=== PATIENT | male | born 1930 | race Caucasian/White ===

== ENCOUNTER 2017-10-29 12:45 | Inpatient (IN) | payer OTHER ==
[~2017-10-29] VITALS: Ht 170.2 cm; Wt 79.4 kg
--- NOTE | 2017-10-29 13:39 | ED GENERAL ADULT ---
History of Present Illness General Chief Complaint: General Adult Stated Complaint: SHAKING WHILE AT THE DENTIST GETTING A CLEANING Source: patient, family Exam Limitations: no limitations Vital Signs & Intake/Output Vital Signs & Intake/Output Vital Signs Date Time Temp Pulse Resp B/P B/P Pulse O2 O2 Flow FiO2 Mean Ox Delivery Rate 10/29 1734 100.8 96 20 124/67 96 Room Air 10/29 1652 100.8 10/29 1641 100.8 102 20 117/63 94 Room Air 10/29 1614 100.9 10/29 1605 101.1 97 22 124/69 95 Room Air 10/29 1512 98 25 121/60 95 Room Air 10/29 1425 100.9 103 20 134/67 94 Room Air 10/29 1323 Room Air 10/29 1322 108 19 136/78 97 Room Air 10/29 1252 99.5 103 18 158/74 99 Room Air Allergies Coded Allergies: No Known Allergies (10/29/17) Triage Note: PT TO ED FOR GENERALIZED ALL OVER BODY SHAKING WHILE 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 PT ARRIVES WITH MINIMAL GENERALIZED TREMORS, DENIES ANY OTHER COMPLAINTS AT THIS TIME. NO HX OF SAME. Triage Nurses Notes Reviewed? 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 Patient had no new medications or procedure done prior to this episode. Patient also states that while he was at the dentist he felt as though his entire left arm "fell asleep" and went numb. This episode lasted approximately 35 minutes and has resolved completely. Patient states that he had nonbloody diarrhea last night approximately 3 episodes. Today upon arrival to the emergency department patient feeling nauseous and vomiting, had no vomiting prior to arrival here today. 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 He is seeing an electric needle specialist neurologist through [place]. Patient had a head MRI and head CT scan within the past month which were within normal limits. Patient also has right ear pain, status post prior to and right ear, history of herpes zoster in the right ear. The patient denies dyspnea, chest pain, abdominal pain , hematemesis, syncope, headache. (Emani Davila) Reconcile Medications Aspirin (Ecotrin*) 81 MG TABLET.DR 1 TAB PO DAILY HEART/BLOOD (Reported) Atorvastatin Calcium 10 MG TABLET 1 TAB PO DAILY CHOLESTEROL (Reported) Cholecalciferol (Vitamin D3) (Vitamin D) 2,000 UNIT CAPSULE 1 CAP PO BID SUPPLEMENT (Reported) Cyanocobalamin (Vitamin B-12) (Cyanocobalamin Injection) 1,000 MCG/ML VIAL 1 ML IM Q30D SUPPLEMENT (Reported) Ferrous Sulfate (Slow Fe) 142 MG (45 MG IRON) TABLET.ER 1 TAB PO DAILY SUPPLEMENT (Reported) Glucosamine HCl/MSM (Glucosamine MSM Liquid) (Unknown Strength) LIQUID ( Unknown Dose) PO DAILY SUPPLEMENT (Reported) Hydrochlorothiazide 25 MG TABLET 1 TAB PO DAILY DIURETIC (Reported) Lactobacillus Acidophilus (Probiotic) (Unknown Strength) CAPSULE (Unknown Dose ) PO DAILY PROBIOTIC (Reported) Lisinopril 20 MG TABLET 1 TAB PO DAILY BP (Reported) Metronidazole 500 MG TABLET 1 TAB PO BID ANTIBIOTIC (Reported) Multiple Vitamin (Multivitamins) 1 EACH TABLET 1 TAB PO DAILY SUPPLEMENT ( Reported) Omeprazole 20 MG CAPSULE.DR 1 CAP PO DAILY GI (Reported) Oxybutynin Chloride (Oxybutynin Chloride ER) 5 MG TAB.ER.24 1 TAB PO QPM BLADDER (Reported) (Shad DANIELS,[place]) Past History Travel History Traveled to [place] past 21 day No Medical History Any Pertinent Medical History? see below for history Neurological: THIRD CRANIAL NERVE PALSY SHINGLES EENT: R EYE "PROBLEMS" Cardiovascular: hypertension, hyperlipidemia Respiratory: NONE Gastrointestinal: GERD, CDIFF SIBO Hepatic: NONE Renal: NONE Musculoskeletal: NONE Psychiatric: NONE Endocrine: NONE Blood Disorders: NONE Cancer(s): NONE Surgical History Surgical History: non-contributory Psychosocial History What is your primary language Qatari Tobacco Use: Never used Daily Tobacco Use Amount/Type: =< 4 Cigarettes daily ETOH Use: denies use Illicit Drug Use: denies illicit drug use Family History Hx Contributory? No (Emani Davila) Review of Systems Review of Systems Constitutional: Reports: see HPI. EENTM: Reports: see HPI. Respiratory: Reports: no symptoms. Cardiovascular: Reports: no symptoms. GI: Reports: see HPI. Genitourinary: Reports: no symptoms. Musculoskeletal: Reports: no symptoms. Skin: Reports: no symptoms. Neurological/Psychological: Reports: see HPI. Hematologic/Endocrine: Reports: no symptoms. Immunologic/Allergic: Reports: no symptoms. All Other Systems: Reviewed and Negative (Emily SERRATO,Emani Arshad) Physical Exam Physical Exam General Appearance: well developed/nourished, no apparent distress, alert, awake Head: atraumatic, normal appearance Eyes: Bilateral: normal appearance, PERRL, EOMI. Ears, Nose, Throat: normal pharynx, hearing grossly normal, right ear with tube in place, white-yellow discharge in ear canal left ear WNL Neck: normal inspection, supple, full range of motion Respiratory: normal breath sounds, no respiratory distress, lungs clear Cardiovascular: tachycardia Gastrointestinal: normal bowel sounds, soft, non-tender, no organomegaly Back: normal inspection, normal range of motion Extremities: normal inspection, normal range of motion Neurologic/Psych: no motor/sensory deficits, awake, alert, oriented x 3, investigator welfare II- XII nml as tested, strength equal bilateral upper and lower extremities 5/5, cerebellar testing WNL bilaterally Skin: intact, normal color, warm/dry Core Measures ACS in differential dx? Yes CVA/TIA Diagnosis: Yes NIH Stroke Scale (24 Hours) NIH Stroke Scale (24 Hours) Response Value Level of Consciousness alert 0 LOC Questions answers both correctly 0 LOC Commands obeys both correctly 0 Best Gaze normal 0 Visual Emery no visual loss 0 Facial Paresis normal 0 Motor Arm - Left no drift 0 Motor Arm - Right no drift 0 Motor Leg - Left no drift 0 Motor Leg - Right no drift 0 Limb Ataxia no ataxia 0 Sensory normal 0 Best Language no aphasia 0 Dysarthria normal articulation 0 Extinction and Inattention no neglect 0 Total 0 Symptom start date: 10/29/17 Reason tPA not ordered Medical Contraindication Sepsis Present: No Sepsis Focused Exam Completed? No (Emani Davila) Progress Differential Diagnoses I considered the following diagnoses in my evaluation of the patient: [TIA/CVA, seizure, ICH, gastroenteritis, influenza, electrolyte abnormality, ACS] Plan of Care: Orders Procedure Date/time Status Heart Healthy Diet 10/30 B Active MRI-HEAD W/O ALLISON 10/30 600 Active MAGNESIUM 10/30 600 Active HEPATIC FUNCTION PANEL 10/30 600 Active CBC WITHOUT DIFFERENTIAL 10/30 600 Active BASIC ELECTROLYTES PLUS BUN&CR 12/31 0600 Active Nothing by Mouth 10/29 D Complete LACTIC ACID 10/[address] ABD & PELVIS W IV CONTRAST 10/29 1803 Active BLOOD CULTURE 10/29 1802 Active PARTIAL THROMBOPLASTIN TIME 10/29 1748 Active PROTHROMBIN TIME 10/29 1748 Active LACTIC ACID 10/29 1742 Complete SWALLOW EVALUATION 10/29 1636 Active PT Evaluate & Treat 10/29 1636 Active Pathway - chart 10/29 1636 Active House Staff 10/29 1636 Active Patient Data 10/[address] in observation 10/29 1621 Active ED Holding Orders 10/29 1621 Active Vital Signs 10/29 1621 Active Code Status 10/29 1621 Active Add-on Test (ER Only) 10/29 1432 Active URINALYSIS 10/29 1419 Complete RAPID VIRAL INFLUENZA A 10/29 1344 Complete TSH REFLEX 10/29 1341 Active LIPASE 10/29 1341 Active LACTIC ACID 10/29 1341 Active VITAMIN B12 10/29 1341 Active AMYLASE 10/29 1341 Active MISTAKE 10/29 1318 Active TROPONIN LEVEL 10/29 1318 Active COMPREHENSIVE METABOLIC PANEL 10/29 1318 Active CBC WITHOUT DIFFERENTIAL 10/29 1318 Complete EKG 10/29 1318 Active XRY-CHEST XRAY, TWO VIEWS 10/29 UNK Active Admit to inpatient 10/29 UNK Active Lab Add-on Test 10/29 UNK Active Occupational Tx Eval & Treat 10/29 UNK Active VTE Mechanical Prophylaxis 10/29 UNK Active Vital Signs 10/29 UNK Active Intake & Output 10/29 UNK Active ECHOCARDIOGRAM 10/29 UNK Active Current Medications Sig/Trey Start time Last Medication Dose Stop Time Status Admin Cholecalciferol 2,000 IU DAILY 10/30 1000 AC (Vitamin D) Enoxaparin Sodium 40 MG DAILY 10/30 1000 AC (Lovenox) Ferrous Sulfate 325 MG DAILY 10/30 1000 AC (Feosol) Hydrochlorothiazide 25 MG DAILY 10/30 1000 CAN (Hydrodiuril) Lisinopril 20 MG DAILY 10/30 1000 AC (Prinivil) Multivitamins 1 TAB DAILY 10/30 1000 AC Therapeutic (Theragran-M Vitamins Tabs) Omeprazole 20 MG DAILY 10/30 1000 AC (Prilosec) Metronidazole 500 MG BID 10/29 2200 AC (Flagyl) Oxybutynin Chloride 5 MG QPM 10/29 2200 AC (Ditropan) Sodium Chloride 1,000 ML Q10H 10/29 1745 AC (Normal Saline 0.9%) Aspirin Buffered 81 MG DAILY 10/29 170 AC (Ecotrin) Atorvastatin Calcium 10 MG DAILY 10/29 170 AC 10/29 (Lipitor) 180 Laboratory Tests 10/29/17 1759: Lactic Acid 1.6 10/29/17 1422: Urine Color YEL, Urine Clarity CLEAR, Urine pH 6.0, Ur Specific [place] 1.015, Urine Protein TRACE H, Urine Ketones NEG, Urine Nitrite NEG, Urine Bilirubin NEG, Urine Urobilinogen 0.2, Ur Leukocyte Esterase NEG, Ur Microscopic SEDIMENT EXAMINED, Urine RBC RARE, Urine WBC RARE, Urine Mucus FEW, Urine Hemoglobin NEG, Urine Glucose NEG 10/29/17 1341: Anion Gap 13, Estimated GFR > 60, BUN/Creatinine Ratio 21.1, Glucose 102 H, Lactic Acid 2.2 H, Calcium 9.6, Total Bilirubin 1.1, AST 371 H, ALT 275 H, Alkaline Phosphatase 77, Troponin I < 0.01, Total Protein 6.5, Albumin 3.9, Globulin 2.6, Albumin/Globulin Ratio 1.5, Amylase 92, Lipase 116, Vitamin B12 Pending, TSH &T3 &Free T4 Intrp 1.980, CBC w Diff NO MAN DIFF REQ, RBC 5.65, MCV 95.2 H, MCH 31.9 H, RDW 13.6, MPV 9.1, Gran % 81.2 H, Lymphocytes % 15.8 L, Monocytes % 2.2, Eosinophils % 0.5, Basophils % 0.3, Absolute Granulocytes 5.3, Absolute Lymphocytes 1.0 L, Absolute Monocytes 0.1, Absolute Eosinophils 0, Absolute Basophils 0, PUBS MCHC 33.5 Microbiology 10/29 1802 BLOOD: Blood Culture - ORD 10/29 1802 BLOOD: Blood Culture - ORD 10/29 142 NASOPHARYN: Influenza Virus A & B Rapid Smear - COMP PATIENT: TIERRA BOGGS PRESENT AGE: 86 PATIENT ACCOUNT NO: [id number] : 30 LOCATION: [facility] ORDERING PHYSICIAN: Emani SERRATO SERVICE DATE: 10/29/17 EXAM TYPE: CAT - CT HEAD WO IV CONTRAST EXAMINATION: CT HEAD WITHOUT CONTRAST CLINICAL INFORMATION: Right arm numbness and generalized weakness COMPARISON: None TECHNIQUE: Contiguous axial imaging was performed from the skull base to vertex without intravenous administration of contrast. DLP: 6-0.91 mGy-cm FINDINGS: There is no evidence of acute intracranial hemorrhage or territorial infarction. No abnormal mass effect or midline shift is seen. Anne to white matter differentiation is well preserved. No extra-axial fluid collections are identified. The ventricles are normal in size. Atherosclerotic calcifications of the cavernous parts of the internal carotid arteries are noted. The osseous structures and soft tissues are normal. The mastoid air cells and visualized portions of the paranasal sinuses are well aerated. IMPRESSION: No acute intracranial hemorrhage or sign of acute territorial ischemia. DICTATED BY: Tj Baires MD DATE/TIME DICTATED:10/29/171519 REVERSE LOGISTICS ANALYST:JAKE DATE/TIME TRANSCRIBED:10/29/171519 CONFIDENTIAL, DO NOT COPY WITHOUT APPROPRIATE AUTHORIZATION. <Electronically signed in Other Vendor System> SIGNED BY: Tj Baires MD 10/29/[address] scan is within normal limits. Patient's lactic acid is elevated slightly, patient medicated with IV fluids. Patient's vomiting has resolved following IV Zofran and Reglan. Patient with possible TIA to an episode of unilateral numbness today. Patient is neurologically intact currently. Also possible gastroenteritis given recent diarrhea yesterday and current nausea and vomiting. Dr. Smith spoke with neurology, Dr. Arredondo, regarding this patient' s signs and symptoms. It was recommended the patient stay for telemetry observation given possible TIA event today. Dr. Smith discussed this patient's telemetry observation with hospitalist. Diagnostic Imaging: Viewed by Me: CT Scan. Discussed w/RAD: CT Scan. Initial ED EKG: sinus tachycardia @ 108, nonspecific ST changes (Emani Davila) Departure Departure Condition: Stable Referrals: Kourtney DANIELS,Jose Cruz Marx Departure Forms: Customer Survey General Discharge Information (Emani Davila) Departure Disposition: STILL A PATIENT Clinical Impression Primary Impression: TIA (transient ischemic attack) Secondary Impressions: Vomiting Observation Note Spoke With: Brenda DANIELS,Jany Bustillos Physician Advisor Notified: SHAD DANIELS,[place] Patient In: Non-ED OBS Care Area Rationale for Observation: My rational for observation is as follows [TELE OBS, NEURO CONSULT (CALLED), MRI , ANTIEMETICS]. PA/TRANSLATION DIRECTOR Co-Sign Statement Statement: ED Attending supervision documentation- [X] I saw and evaluated the patient. I have also reviewed all the pertinent lab results and diagnostic results. I agree with the findings and the plan of care as documented in the PA's/TRANSLATION DIRECTOR's documentation. [X] I have reviewed the ED Record and agree with the PA's/TRANSLATION DIRECTOR's documentation. [] Additions or exceptions (if any) to the PAs/TRANSLATION DIRECTOR's note and plan are summarized below: [SEE ABOVE NOTE] (Shad DANIELS,[place]) Critical Care Note Critical Care Note Critical Care Time: non-applicable (Emily SERRATO,Emani Arshad) (Emily SERRATO,Emani Arshad)
[2017-10-29 14:17] LABS: ABSOLUTE BASOPHIL COUNT 0 /CUMM (0.0-0.2); ABSOLUTE EOSINOPHIL COUNT 0 /CUMM (0.0-0.7); ABSOLUTE GRANULOCYTE CT 5.3 /CUMM (1.4-6.5); ABSOLUTE MONOCYTE COUNT 0.1 /CUMM (0.10-0.60); BASOPHIL % 0.3 % (0.0-2.0); EOSINOPHIL % 0.5 % (0-5); GRANULOCYTE % 81.2 % (42.2-75.2); HEMATOCRIT 53.8 % (42-52); MEAN CORPUSCULAR HGB 31.9 PG (27.0-31.0); MEAN CORPUSCULAR HGB CONC 33.5 G/DL (33.0-37.0); MEAN CORPUSCULAR VOLUME 95.2 FL (80.0-94.0); MEAN PLATELET VOLUME 9.1 FL (7.4-10.4); PLATELET COUNT 86 /CUMM (130-400); RBC DISTRIBUTION WIDTH 13.6 % (11.5-14.5); RED BLOOD CELL CT 5.65 /CUMM (4.70-6.10); WHITE BLOOD CELL COUNT 6.6 /CUMM (4.8-10.8)
[2017-10-29] MEDS ORDERED: METRONIDAZOLE500 M1 PO (15:13)
[2017-10-29] MEDS ORDERED: LISINOPRIL20 M1 PO (15:14)
[2017-10-29] MEDS ORDERED: OMEPRAZOLE20 M2 PO (15:14)
[2017-10-29] MEDS ORDERED: HYDROCHLOROTHIA25 M1 PO (15:14)
[2017-10-29] MEDS ORDERED: OXYBUTYNIN CHLOR5 M3 PO (15:15)
[2017-10-29] MEDS ORDERED: ATORVASTATIN CA10 M1 PO (15:15)
[2017-10-29] MEDS ORDERED: CYANOCOBAL1000 MCG/2 IM (15:16)
[2017-10-29] MEDS ORDERED: ASPIRIN EC81 M1 PO (15:16)
[2017-10-29] MEDS ORDERED: VITAMIN D2000 UNIT PO (15:16)
[2017-10-29] MEDS ORDERED: MULTIVITAMINS1 EAC9 PO (15:17)
[2017-10-29] MEDS ORDERED: PROBIOTIC1 EACH PO (15:17)
[2017-10-29] MEDS ORDERED: SLOW FE142 MG PO (15:17)
[2017-10-29] MEDS ORDERED: GLUCOSAMINE MS480 ML PO (15:18)
--- NOTE | 2017-10-29 15:30 | CT SCAN REPORT ---
EXAMINATION: CT HEAD WITHOUT CONTRAST CLINICAL INFORMATION: Right arm numbness and generalized weakness COMPARISON: None TECHNIQUE: Contiguous axial imaging was performed from the skull base to vertex without intravenous administration of contrast. DLP: 6-0.91 mGy-cm FINDINGS: There is no evidence of acute intracranial hemorrhage or territorial infarction. No abnormal mass effect or midline shift is seen. Anne to white matter differentiation is well preserved. No extra-axial fluid collections are identified. The ventricles are normal in size. Atherosclerotic calcifications of the cavernous parts of the internal carotid arteries are noted. The osseous structures and soft tissues are normal. The mastoid air cells and visualized portions of the paranasal sinuses are well aerated. IMPRESSION: No acute intracranial hemorrhage or sign of acute territorial ischemia.
--- NOTE | 2017-10-29 16:27 | History & Physical ---
Antolin DANIELS,[facility] 10/29/17 9667: General Information and HPI MD Statement: I have seen and personally examined TIERRA BOGGS and documented this H&P. The patient is a 86 year old M who presented with a patient stated chief complaint of [weakness and vomiting]. 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 difficile colitis for which the patient takes prophylactic metronidazole twice a day. The patient presented to [facility] ED on 10/29 with complain of shaking all over body and left arm numbness The patient was in usual state of health until this morning when he visited his dentist. He had an episode of shaking at that office. Patient states that he felt cold and during the episode his left arm fell asleep and went numb. He experienced pins and needles sensation in that arm. The symptoms resolved after 15 minutes, however the shaking continued for 1 hour. He felt unsteady on his feet while walking back to his car. The patient did not lose consciousness, there was no jerky movement of the body, tongue bite, fecal/urinary incontinence , palpitations or prodromal symptoms of nausea or lightheadedness. Of note patient states that he has had episodes of numbness of left arm couple of times in the past as well. Which resolved on their own and has never seek medical attention for it. Patient had an episode of vomiting on arriving to ED. Since then he has had 4 episodes. Patient states feeling warm. He states that he had one episode of diarrhea yesterday resolved by using loperamide. As per patient has not had any episodes of diarrhea since then and contributes this to his chronic colitis. 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 His last stress test was done more than 5 years ago and was within normal limits the patient and the family does not remember him getting an echocardiogram. Patient is a former smoker with 35 y of smoking 3 packs per day and quit 40 years ago. This is patient's first admission to [facility], Most of his care has been done at [facility]. Allergies/Medications Allergies: Coded Allergies: No Known Allergies (10/29/17) Home Med list Aspirin (Ecotrin*) 81 MG TABLET.DR 1 TAB PO DAILY HEART/BLOOD (Reported) Atorvastatin Calcium 10 MG TABLET 1 TAB PO DAILY CHOLESTEROL (Reported) Cholecalciferol (Vitamin D3) (Vitamin D) 2,000 UNIT CAPSULE 1 CAP PO BID SUPPLEMENT (Reported) Cyanocobalamin (Vitamin B-12) (Cyanocobalamin Injection) 1,000 MCG/ML VIAL 1 ML IM Q30D SUPPLEMENT (Reported) Ferrous Sulfate (Slow Fe) 142 MG (45 MG IRON) TABLET.ER 1 TAB PO DAILY SUPPLEMENT (Reported) Glucosamine HCl/MSM (Glucosamine MSM Liquid) (Unknown Strength) LIQUID ( Unknown Dose) PO DAILY SUPPLEMENT (Reported) Hydrochlorothiazide 25 MG TABLET 1 TAB PO DAILY DIURETIC (Reported) Lactobacillus Acidophilus (Probiotic) (Unknown Strength) CAPSULE (Unknown Dose ) PO DAILY PROBIOTIC (Reported) Lisinopril 20 MG TABLET 1 TAB PO DAILY BP (Reported) Metronidazole 500 MG TABLET 1 TAB PO BID ANTIBIOTIC (Reported) Multiple Vitamin (Multivitamins) 1 EACH TABLET 1 TAB PO DAILY SUPPLEMENT ( Reported) Omeprazole 20 MG CAPSULE.DR 1 CAP PO DAILY GI (Reported) Oxybutynin Chloride (Oxybutynin Chloride ER) 5 MG TAB.ER.24 1 TAB PO QPM BLADDER (Reported) Compliance With Home Meds: GOOD Past History Travel History Traveled to [place] past 21 day No Medical History Neurological: THIRD CRANIAL NERVE PALSY SHINGLES EENT: R eye double vision Cardiovascular: hypertension, hyperlipidemia Respiratory: NONE Gastrointestinal: GERD, CDIFF SIBO Hepatic: NONE Renal: NONE Musculoskeletal: NONE Psychiatric: NONE Endocrine: NONE Blood Disorders: NONE Cancer(s): NONE Surgical History Surgical History: appendectomy, cholecystectomy, knee replacement, mesenteric angioplasty Past Family/Social History Family History Relations & Conditions if any SISTER (pancreatic cancer). FATHER (HTN). MOTHER (Glucoma). Psychosocial History Where do you live? Home Who Do You Live With? spouse Services at Home: None Primary Language: Uzbek Smoking Status: Former Smoker (smoked 3 pack/day for 35 y) ETOH Use: denies use Illicit Drug Use: denies illicit drug use Functional Ability ADLs Independent: dressing, eating, toileting, bathing. Ambulation: independent IADLs Independent: shopping, housework, finances, food prep, telephone, transportation , medication admin. Employment History Employment Retired Review of Systems Review of Systems Constitutional: Reports: see HPI, chills, malaise. Denies: unexplained weight loss. Cardiovascular: Denies: chest pain, orthopena, palpitations, peripheral edema. GI: Reports: diarrhea. Denies: abdominal pain, bloating, constipation, vomiting. Genitourinary: Reports: no symptoms. Musculoskeletal: Reports: no symptoms. Skin: Reports: no symptoms. Neurological/Psychological: Reports: see HPI. Exam & Diagnostic Data Last 24 Hrs of Vital Signs/I&O Vital Signs Date Time Temp Pulse Resp B/P B/P Pulse O2 O2 Flow FiO2 Mean Ox Delivery Rate 10/29 1734 100.8 96 20 124/67 96 Room Air 10/29 1652 100.8 10/29 1641 100.8 102 20 117/63 94 Room Air 10/29 1614 100.9 10/29 1605 101.1 97 22 124/69 95 Room Air 10/29 1512 98 25 121/60 95 Room Air 10/29 1425 100.9 103 20 134/67 94 Room Air 10/29 1323 Room Air 10/29 1322 108 19 136/78 97 Room Air 10/29 1252 99.5 103 18 158/74 99 Room Air Intake & Output 10/29 1600 10/29 0800 10/29 0000 Intake Total Output Total 200 Balance -200 Output, Urine 200 Patient 175 lb Weight Weight Reported by Patient Measurement Method Physical Exam General Appearance Alert, Oriented X3, Cooperative, No Acute Distress Skin No Rashes HEENT Atraumatic, PERRLA, EOMI, Mucous Membr. moist/pink Neck Supple, No JVD, No thryomegaly, +2 Carotid Pulse wo Bruit, No LAD Cardiovascular Regular Rate, Normal S1, Normal S2, No Murmurs Lungs Clear to Auscultation, Normal Air Movement Abdomen Normal Bowel Sounds, No Tenderness, No Hepatospenomegaly, No Masses, mildly distended Neurological Normal Gait, Normal Speech, Strength at 5/5 X4 Ext, Normal Tone, Sensation Intact, Cranial Nerves 3-12 NL, Reflexes 2+, cerebeller signs intact Extremities No Cyanosis, No Edema Vascular Normal Pulses Last 24 Hrs of Labs/Carlos: Laboratory Tests 10/29/17 1759: Lactic Acid Pending 10/29/17 1422: Urine Color YEL, Urine Clarity CLEAR, Urine pH 6.0, Ur Specific [place] 1.015, Urine Protein TRACE H, Urine Ketones NEG, Urine Nitrite NEG, Urine Bilirubin NEG, Urine Urobilinogen 0.2, Ur Leukocyte Esterase NEG, Ur Microscopic SEDIMENT EXAMINED, Urine RBC RARE, Urine WBC RARE, Urine Mucus FEW, Urine Hemoglobin NEG, Urine Glucose NEG 10/29/17 1341: Anion Gap 13, Estimated GFR > 60, BUN/Creatinine Ratio 21.1, Glucose 102 H, Lactic Acid 2.2 H, Calcium 9.6, Total Bilirubin 1.1, AST 371 H, ALT 275 H, Alkaline Phosphatase 77, Troponin I < 0.01, Total Protein 6.5, Albumin 3.9, Globulin 2.6, Albumin/Globulin Ratio 1.5, Amylase 92, Lipase 116, Vitamin B12 Pending, TSH &T3 &Free T4 Intrp Pending, CBC w Diff NO MAN DIFF REQ, RBC 5.65, MCV 95.2 H, MCH 31.9 H, RDW 13.6, MPV 9.1, Gran % 81.2 H, Lymphocytes % 15.8 L, Monocytes % 2.2, Eosinophils % 0.5, Basophils % 0.3, Absolute Granulocytes 5.3, Absolute Lymphocytes 1.0 L, Absolute Monocytes 0.1, Absolute Eosinophils 0 , Absolute Basophils 0, PUBS MCHC 33.5 Microbiology 10/29 180 BLOOD: Blood Culture - ORD 10/29 180 BLOOD: Blood Culture - ORD 10/29 1420 NASOPHARYN: Influenza Virus A & B Rapid Smear - COMP Diagnostic Data EKG Results sinus tachycardia QTC 402, deep Q waves in leads 2 and aVF RR progression no acute ST segment changes Other Results CAT - CT HEAD WO IV CONTRAST No acute intracranial hemorrhage or sign of acute territorial ischemia. 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 difficile colitis for which the patient takes prophylactic metronidazole twice a day. The patient presented to [facility] ED on 10/29 with complain of shaking all over body and left arm numbness - Vitals at time of presentation temperature 99.5 recheck at 101.1, tachycardia 103. Rest within normal limits -Pertinent labs H/H 18/54, 86, AST 371 ALT 275, lactic 2.2 -The patient is being placed as an observation on telemetry floor. He is being evaluated and treated for following conditions #Suspected TIA Patient had an episode of left-sided numbness and weakness, which has completely resolved by now. His presentation is concerning for a TIA, CT head negative * Continuous telemetry monitoring for any arrhythmias * Echocardiogram to assess any structural pathology * MRI to rule out evolving stroke * Check orthostatics * Bilateral carotid Doppler to rule out carotid stenosis especially in setting of mesenteric ischemia history in the past * Neuro checks every 4 * We will continue Aspirin and statin * Patient passed bedside swallow, formal consult for the morning #Fever/Vomiting Patient presented to ED with tachycardia and later was found to have fever Tmax 101.1. Lactic acid levels were noted to be 2.2. His presentation is concerning for infectious/vascular pathology. * Monitor fever and white count curve * Continue IV fluids * We are going to trend lactic acid * Chest x-ray to rule out any aspiration * We're going to obtain an urgent CT abdomen with IV contrast to rule out any intra-abdominal pathology abscess versus vascular, will consult surgery as per findings * Obtain blood cultures * Low threshold for starting antibiotics #Transaminitis Patient presented with transaminitis which can be secondary to an infectious process going on * Monitor LFTs * Persistently elevated consider right upper quadrant ultrasound #Thrombocytopenia Patient is admitted with blood pressure of 86. Of unclear etiology for now * Thrombocytopenic precautions * Monitor platelet count * We will check coagulation profile to rule out DIC #Diet nothing by mouth #DVT prophylaxis alps and Lovenox #CODE STATUS full code As Ranked By This Provider Problem List: 1. TIA (transient ischemic attack) 2. Vomiting Core Measures/Misc (07/17) Acute Coronary Syndrome ACS Diagnosis: No Congestive Heart Failure Congestive Heart Failure Diagnosis No Cerebrovascular Accident CVA/TIA Diagnosis: Yes NIH Stroke Scale: Total 0 Date Last Known Well: 10/29/17 Time Last Known Well: 1100 Symptom Start Date: 10/30/17 Symptom Start Time: 1100 Swallow Evaluation Pass VTE (View Protocol) VTE Risk Factors Age>40 No Mechanical VTE Prophylaxis d/t N/A MechProphylax Ordered No VTE Pharm Prophylaxis d/t NA PharmProphylax ordered Sepsis (View protocol) Sepsis Present: No Ender Burton MD 10/29/17 1653: Resident Review Statement Resident Statement: examined this patient, discussed with graduate intern, agreed with graduate intern, reviewed EMR data (avail), discussed with nursing, discussed with case mgmt, reviewed images Other Findings: 86 yo M with pmh of deo [place], and third nerve palsy 2 months ago with residual diplopia, prediabetes, hypertension, GERD, hyperlipidemia, C. difficile colitis on metronidazole twice daily, mesenteric artery occlusion 2 years ago, was brought into the ED after having an episode of generalized shaking and left upper extremity tingling today at his dentist's office. The episode lasted for about an hour, but he did not have any weakness, slurring of speech, blurring of vision, incontinence, neither lost his consciousness. He was rushed to the ED with suspicion of TIA, by which time his symptoms had already resolved. In the ED, he vomited 4 times and had mild abdominal distention. He does not have leukocytosis but he was found to have fever 101.1, lactic acidosis 2.2, thrombocytopenia 86, erythrocytosis- h/h 18/54, transaminitis- ast/alt 371/275, and with suspicion of maybe covert abscess, a CAT scan of his abdomen has been ordered. Chest x-ray has been ordered to rule out any aspiration that he might have as he vomited 4 times in the ED. Patient currently has IV fluids running at 100 and the per hour, but does not have any antibiotic coverage as of now. To rule out TIA/stroke, an MRI has been ordered for tomorrow although the initial CAT scan did not show any overt signs of stroke or bleeding. Neurology consultation has been placed, regular neurochecks have been ordered, echocardiogram has been ordered. Aspirin, statin, antihypertensives continued. Thrombocytopenia precautions will be maintained in coagulation tests ordered to rule out DIC. Patient passed neuro evaluation except his residual deficit, swallow evaluation, and has a gag reflex, thus he can resume diet if his CAT scan of abdomen does not show any concerning abnormalities. DVT prophylaxis with subcutaneous Lovenox. CODE STATUS full code Nothing by mouth for now. Brenda DANIELS,Jany 10/29/17 3032: Attending MD Review Statement Attending Statement Attending MD Statement: examined this patient, discuss w/resident/PA/SUPERVISING CHEF, agreed w/resident/PA/SUPERVISING CHEF, reviewed EMR data (avail), reviewed images Attending Assessment/Plan: 86 year old male with HTN, Hyperlipidemia and vascular disease in the past, third nerve palsy that is being worked up at [facility] is here with fever, lactic acidosis, thrombocytopenia, dehydration, transaminitis and vomitting of unclear etiology. Abd exam benign In addition pt had syx of left arm numbness and weakness earlier this am that have subsequently resolved. Will bring pt to Tele, get neurochecks, echo and MRI. Cont Asa, statin , passed a bedside swallow done by the resident in the ED Hydrate, chcek coags and trend lactate, check blood c/s, get CT abd with IV contrast to r/o intarabdominal process. Chcek cxray, r/o aspiration. Low threshold for abx and surgical consult depending on CT results DVT prophylaxis and f/u.
--- NOTE | 2017-10-29 17:57 | Admission Certification ---
Admission Certification Certification Statement - As attending physician, I certify that at the time of - admission, based on clinical presentation, severity of - symptoms, need for further diagnostic testing and - therapeutic interventions, and risk of adverse outcomes - without in-hospital treatment, in my clinical assessment, - this patient requires an acute hospital stay for a minimum - of two nights or longer. I have also considered psychsocial - factors such as support system, advanced age, financial - issues, cognitive issues, and failed out-patient treatments, - past re-admission history, safety of patient, and lack of - compliance as applicable. Specific rationale supporting this admission is: fever, lactic acidosis, thrombocytopenia
[2017-10-29 18:30] VITALS: BP 118/62; BP 118/96
--- NOTE | 2017-10-29 18:46 | Cons- Neurology ---
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 with having a dental cleaning today leaning his elbows against the arm rests when he noticed some numbness in the fingers of his left hand. He also reports a history of left-sided carpal tunnel syndrome for which he declined surgery in the past. He states that after 5 to 10 minutes repositioning his arm, symptoms improved. He denied any associated weakness. He began to developed rigors and seemed to bit confused according to his daughter, so was brought to the ED, where he experienced some nausea and vomiting, and was found to be febrile. He was brought in for observation. Allergies/Medications Allergies: Coded Allergies: No Known Allergies (10/29/17) Home Med List: Aspirin (Ecotrin*) 81 MG TABLET.DR 1 TAB PO DAILY HEART/BLOOD (Reported) Atorvastatin Calcium 10 MG TABLET 1 TAB PO DAILY CHOLESTEROL (Reported) Cholecalciferol (Vitamin D3) (Vitamin D) 2,000 UNIT CAPSULE 1 CAP PO BID SUPPLEMENT (Reported) Cyanocobalamin (Vitamin B-12) (Cyanocobalamin Injection) 1,000 MCG/ML VIAL 1 ML IM Q30D SUPPLEMENT (Reported) Ferrous Sulfate (Slow Fe) 142 MG (45 MG IRON) TABLET.ER 1 TAB PO DAILY SUPPLEMENT (Reported) Glucosamine HCl/MSM (Glucosamine MSM Liquid) (Unknown Strength) LIQUID ( Unknown Dose) PO DAILY SUPPLEMENT (Reported) Hydrochlorothiazide 25 MG TABLET 1 TAB PO DAILY DIURETIC (Reported) Lactobacillus Acidophilus (Probiotic) (Unknown Strength) CAPSULE (Unknown Dose ) PO DAILY PROBIOTIC (Reported) Lisinopril 20 MG TABLET 1 TAB PO DAILY BP (Reported) Metronidazole 500 MG TABLET 1 TAB PO BID ANTIBIOTIC (Reported) Multiple Vitamin (Multivitamins) 1 EACH TABLET 1 TAB PO DAILY SUPPLEMENT ( Reported) Omeprazole 20 MG CAPSULE.DR 1 CAP PO DAILY GI (Reported) Oxybutynin Chloride (Oxybutynin Chloride ER) 5 MG TAB.ER.24 1 TAB PO QPM BLADDER (Reported) Current Medications: Current Medications Sig/Trey Start time Last Medication Dose Route Stop Time Status Admin Acetaminophen 0 .STK-MED ONE 12/30 1616 DC IV Acetaminophen 1,000 MG ONCE ONE 10/29 1615 DC 10/29 N/A 1 UNIT IV 10/29 1629 1614 Aspirin Buffered 81 MG DAILY 10/29 1707 AC PO Atorvastatin Calcium 10 MG DAILY 10/29 1707 AC 10/29 PO 1802 Cholecalciferol 2,000 IU DAILY 10/30 1000 AC PO Enoxaparin Sodium 40 MG DAILY 10/30 1000 AC SC Ferrous Sulfate 325 MG DAILY 10/30 1000 AC PO Hydrochlorothiazide 25 MG DAILY 10/30 1000 CAN PO Lisinopril 20 MG DAILY 10/30 1000 AC PO Metoclopramide HCl 0 .STK-MED ONE 10/29 1434 DC .ROUTE Metoclopramide HCl 10 MG ONCE ONE 10/29 1415 DC 10/29 IV 10/29 1416 1438 Metronidazole 500 MG BID 10/29 2200 AC PO Multivitamins 1 TAB DAILY 10/30 1000 AC Therapeutic PO Omeprazole 20 MG DAILY 10/30 1000 AC PO Ondansetron HCl 4 MG ONCE ONE 10/29 1345 DC 10/29 IV 10/29 1346 1342 Ondansetron HCl 0 .STK-MED ONE 10/29 1328 DC .ROUTE Oxybutynin Chloride 5 MG QPM 10/29 2200 AC PO Sodium Chloride 1,000 ML Q10H 10/29 1745 AC IV Sodium Chloride 1,000 ML BOLUS ONE 10/29 1430 DC 10/29 IV 10/29 1629 1439 Review of Systems Review of Systems Constitutional: Reports: chills, fever. EENTM: Reports: no symptoms. Cardiovascular: Reports: no symptoms. Respiratory: Reports: no symptoms. GI: Reports: see HPI. Musculoskeletal: Reports: no symptoms. Neurological/Psychological: Reports: see HPI. Hematologic/Endocrine: Reports: no symptoms. Past History Travel History Traveled to [place] past 21 day No Medical History Neurological: THIRD CRANIAL NERVE PALSY SHINGLES, [place] syndrome right side EENT: R EYE "PROBLEMS" Cardiovascular: hypertension, hyperlipidemia Respiratory: NONE Gastrointestinal: GERD, CDIFF SIBO Hepatic: NONE Renal: NONE Musculoskeletal: NONE Psychiatric: NONE Endocrine: NONE Blood Disorders: NONE Cancer(s): NONE Surgical History Surgical History: non-contributory Psychosocial History ETOH Use: denies use Illicit Drug Use: denies illicit drug use Exam & Diagnostic Data Vital Signs and I&O Vital Signs Date Time Temp Pulse Resp B/P B/P Pulse O2 O2 Flow FiO2 Mean Ox Delivery Rate 10/29 1734 100.8 96 20 124/67 96 Room Air 10/29 1652 100.8 10/29 1641 100.8 102 20 117/63 94 Room Air 10/29 1614 100.9 10/29 1605 101.1 97 22 124/69 95 Room Air 10/29 1512 98 25 121/60 95 Room Air 10/29 1425 100.9 103 20 134/67 94 Room Air 10/29 1323 Room Air 10/29 1322 108 19 136/78 97 Room Air 10/29 1252 99.5 103 18 158/74 99 Room Air Intake & Output 10/29 1600 10/29 0800 10/29 0000 Intake Total Output Total 200 Balance -200 Output, Urine 200 Patient 175 lb Weight Weight Reported by Patient Measurement Method Physical Exam: awake alert pleasant cooperative head normocephalic atraumatic hearing aids in place Neck supple no audible carotid or cranial bruits heart regular rate and rhythm extremities without clubbing cyanosis or edema healed right knee arthroplasty incision intact peripheral pulses neurologic exam: Alert and oriented to person place year and month a bit forgetful. Stated he had had a brain MRI "2 weeks ago" rather than 2 months ago. Also forgot that he had experienced vomiting earlier in the day and was not aware that he had had a fever Speech fluent with intact naming repetition and comprehension general fund of knowledge within normal limits Cranial nerves: Ocular alignment exotropic No ptosis pupils equal round reactive to light Full extraocular motility facial movements symmetric hearing diminished bilaterally symmetric shoulder shrug midline tongue protrusion symmetric elevation of the uvula and palate motor: Normal muscle bulk tone and strength; no abnormal involuntary movements Coordination intact on finger-nose and heel-pham testing sensation of light touch and joint position intact Deep tendon reflexes symmetrically hypoactive plantar responses flexor gait not tested Last 48 Hours of Lab Results: Laboratory Tests 10/29 10/29 1759 1422 Chemistry Lactic Acid (0.7 - 2.1 mmol/L) 1.6 Urines Urine Color (YEL,AMB,STR) YEL Urine Clarity (CLEAR) CLEAR Urine pH (5.0 - 8.0) 6.0 Ur Specific [place] (1.001 - 1.035) 1.015 Urine Protein (NEG,<30 MG/DL) TRACE H Urine Ketones (NEG) NEG Urine Nitrite (NEG) NEG Urine Bilirubin (NEG) NEG Urine Urobilinogen (0.1 - 1.0 EU/dl) 0.2 Ur Leukocyte Esterase (NEG) NEG Ur Microscopic SEDIMENT EXAMINED Urine RBC (0 - 5 /HPF) RARE Urine WBC (0 - 2 /HPF) RARE Urine Mucus (FEW,NONE) FEW Urine Hemoglobin (NEG) NEG Urine Glucose (N MG/DL) NEG 10/29 1341 Chemistry Sodium (137 - 145 mmol/L) 141 Potassium (3.5 - 5.1 mmol/L) 3.8 Chloride (98 - 107 mmol/L) 106 Carbon Dioxide (22 - 30 mmol/L) 22 Anion Gap (5 - 16) 13 BUN (9 - 20 mg/dL) 19 Creatinine (0.7 - 1.2 mg/dL) 0.9 Estimated GFR (>60 ml/min) > 60 BUN/Creatinine Ratio (7 - 25 %) 21.1 Glucose (65 - 99 mg/dL) 102 H Lactic Acid (0.7 - 2.1 mmol/L) 2.2 H Calcium (8.4 - 10.2 mg/dL) 9.6 Total Bilirubin (0.2 - 1.3 mg/dL) 1.1 AST (17 - 59 U/L) 371 H ALT (21 - 72 U/L) 275 H Alkaline Phosphatase (< 127 U/L) 77 Troponin I (<0.11 ng/ml) < 0.01 Total Protein (6.3 - 8.2 g/dL) 6.5 Albumin (3.5 - 5.0 g/dL) 3.9 Globulin (1.9 - 4.2 gm/dL) 2.6 Albumin/Globulin Ratio (1.1 - 2.2 %) 1.5 Amylase (30 - 110 U/L) 92 Lipase (23 - 300 U/L) 116 Vitamin B12 (239 - 931 pg/mL) Pending TSH &T3 &Free T4 Intrp (0.27 - 4.20 uIU/mL) 1.980 Hematology CBC w Diff NO MAN DIFF REQ WBC (4.8 - 10.8 /CUMM) 6.6 RBC (4.70 - 6.10 /CUMM) 5.65 Hgb (14.0 - 18.0 G/DL) 18.0 Hct (42 - 52 %) 53.8 H MCV (80.0 - 94.0 FL) 95.2 H MCH (27.0 - 31.0 PG) 31.9 H RDW (11.5 - 14.5 %) 13.6 Plt Count (130 - 400 /CUMM) 86 L MPV (7.4 - 10.4 FL) 9.1 Gran % (42.2 - 75.2 %) 81.2 H Lymphocytes % (20.5 - 51.1 %) 15.8 L Monocytes % (1.7 - 9.3 %) 2.2 Eosinophils % (0 - 5 %) 0.5 Basophils % (0.0 - 2.0 %) 0.3 Absolute Granulocytes (1.4 - 6.5 /CUMM) 5.3 Absolute Lymphocytes (1.2 - 3.4 /CUMM) 1.0 L Absolute Monocytes (0.10 - 0.60 /CUMM) 0.1 Absolute Eosinophils (0.0 - 0.7 /CUMM) 0 Absolute Basophils (0.0 - 0.2 /CUMM) 0 PUBS MCHC (33.0 - 37.0 G/DL) 33.5 Imaging/Other Studies: PATIENT: TIERRA BOGGS PRESENT AGE: 86 PATIENT ACCOUNT NO: [id number] : 30 LOCATION: [facility] ORDERING PHYSICIAN: Emani SERRATO SERVICE DATE: 10/29/174 EXAM TYPE: CAT - CT HEAD WO IV CONTRAST EXAMINATION: CT HEAD WITHOUT CONTRAST CLINICAL INFORMATION: Right arm numbness and generalized weakness COMPARISON: None TECHNIQUE: Contiguous axial imaging was performed from the skull base to vertex without intravenous administration of contrast. DLP: 6-0.91 mGy-cm FINDINGS: There is no evidence of acute intracranial hemorrhage or territorial infarction. No abnormal mass effect or midline shift is seen. Anne to white matter differentiation is well preserved. No extra-axial fluid collections are identified. The ventricles are normal in size. Atherosclerotic calcifications of the cavernous parts of the internal carotid arteries are noted. The osseous structures and soft tissues are normal. The mastoid air cells and visualized portions of the paranasal sinuses are well aerated. IMPRESSION: No acute intracranial hemorrhage or sign of acute territorial ischemia. DICTATED BY: Tj Baires MD DATE/TIME DICTATED:10/29/171519 REC THERAPIST:JAKE DATE/TIME TRANSCRIBED:10/29/171519 CONFIDENTIAL, DO NOT COPY WITHOUT APPROPRIATE AUTHORIZATION. <Electronically signed in Other Vendor System> SIGNED BY: Tj Baires MD 10/29/17 1530 brain MRI [place], July 2017: Chronic microvascular ischemic changes. No acute abnormalities. ions were obtained following the intravenous injection of 0.2 ml/kg Dotarem ( gadolinium-based contrast agent).Comparison: ~MRI brain 07/18/2015.Indication: ~Stroke.FINDINGS:There is no diffusion abnormality to suggest acute brain infarction. Generalized parenchymal volume loss with commensurate enlargement of ventricles and cortical sulci noted. Nonspecific white matter changes likely reflect the sequela of chronic microvascular ischemic disease.There is no extra axial fluid collection, intracranial hemorrhage or mass effect.The globes, optic nerve sheath complexes and orbital soft tissues appear unremarkable. No appreciable abnormality of the cavernous sinuses. No appreciable abnormal cranial nerve enhancement is identified.IMPRESSION:No acute intracranial pathology.Reported And Signed By: Justin Ramires MD [facility] Neck July 2017, [place] Small filling defect within the proximal basilar artery along the posterior wall of vessel in which a nonocclusive thrombus is not excluded. Atherosclerotic irregularity of the intradural portions of the left vertebral artery resulting in up to moderate focal stenosis. 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 continue to occlude right eye glass with opaque tape p.r.n. diplopia No further neurodiagnostic testing needed at this time Consult Acknowledgment - Thank you for your consult request.
--- NOTE | 2017-10-29 19:34 | CT SCAN REPORT ---
EXAMINATION: CT ABDOMEN AND PELVIS WITH CONTRAST CLINICAL INFORMATION: Lactic acidosis, pain. COMPARISON: None TECHNIQUE: Multidetector volumetric imaging was performed of the abdomen and pelvis following IV administration of 95 mL of Optiray 320 intravenous contrast. Sagittal and coronal reformatted images were obtained on the technologist's workstation. DLP: 430.71 mGy-cm FINDINGS: LUNG BASES: The visualized lung bases are unremarkable. LIVER, GALLBLADDER, AND BILIARY TREE: The liver is normal in size, shape, and attenuation. No focal hepatic lesion or biliary ductal dilatation is present. The gallbladder has been surgically removed. There is mild dilatation of the common bile duct, which can be seen in post-cholecystectomy patient. Mild dilatation of the intrahepatic bile ducts in the left lobe of liver is also present. PANCREAS: There is mild prominence of the main pancreatic duct, up to 0.4 cm in diameter. The pancreatic parenchyma is normal. No peripancreatic inflammatory changes noted. SPLEEN: Unremarkable. ADRENAL GLANDS: Unremarkable. KIDNEYS AND URETERS: The kidneys are normal in size, shape, and attenuation. No hydronephrosis, hydroureter, or calculi seen. No perinephric stranding. There is a 3.5 cm parapelvic cyst in mid part of the right kidney. BLADDER: Unremarkable. GASTROINTESTINAL TRACT: There is mild prominence of the small bowel loops in the right side of the abdomen with maximal transverse diameter of 2.8 cm. It is mostly in the region of proximal jejunum. No definite transition is seen. There is no abnormal wall thickening or pneumatosis. Presence of air and fluid in the more distal small bowel loops noted. The appendix is not visualized, however, there are no inflammatory changes to suggest acute appendicitis. Moderate amount of stool is seen in the course of colon. No abnormal thickening of the wall of colon. There is no free air or free fluid within the abdomen or pelvis. There is no abnormal mesenteric stranding. ABDOMINAL WALL: No significant hernia is appreciated. LYMPH NODES: Normal. VASCULAR: Atherosclerotic calcifications of the abdominal aorta and major branches noted. There seems to be a vascular stent in proximal SMA. PELVIC VISCERA: The prostate and seminal vesicles are unremarkable. OSSEOUS STRUCTURES: Surgical hardware at L3, L4 and L5 levels with transpedicular screws and fixation rods. No acute fracture. IMPRESSION: 1. There is mild prominence of proximal small bowel loop in the region of jejunum with maximal transverse diameter of 2.8 cm. There is no abnormal wall thickening or pneumatosis of the small bowel or colon. No free air or fluid in the abdomen or pelvis. No abnormal mesenteric stranding. 2. The patient is status post cholecystectomy. There is dilatation of the CBD and mild dilatation of the intrahepatic bile ducts in the left lobe of liver. This finding can be seen in postcholecystectomy patients. There is also mild prominence of the main pancreatic duct. No definite abnormality is seen in the region of the ampulla of Vater. 3. Right renal parapelvic cyst.
--- NOTE | 2017-10-29 20:06 | RADIOLOGY REPORT ---
EXAMINATION: XR CHEST CLINICAL INFORMATION: Vomiting, fever, lactic acidosis, COMPARISON: None TECHNIQUE: 2 views of the chest were obtained. FINDINGS: The cardiomediastinal silhouette is normal. Atherosclerotic calcifications of the aortic arch noted. The pulmonary vascularity is normal. The lungs are normally expanded and clear. No focal pulmonary consolidation. No pleural effusion. No pneumothorax. The visualized bones are unremarkable. IMPRESSION: No acute cardiopulmonary findings.
[2017-10-29 22:10] LABS: PT 12.1 SEC (9.4-12.5); PTT 30 SEC (25-37)
[2017-10-29 23:08] VITALS: BP 102/60
[2017-10-30 06:46] VITALS: BP 114/68
[2017-10-30 08:40] LABS: ABSOLUTE BASOPHIL COUNT 0 /CUMM (0.0-0.2); ABSOLUTE EOSINOPHIL COUNT 0.1 /CUMM (0.0-0.7); ABSOLUTE MONOCYTE COUNT 0.6 /CUMM (0.10-0.60); MEAN PLATELET VOLUME 9.4 FL (7.4-10.4); WHITE BLOOD CELL COUNT 8.1 /CUMM (4.8-10.8)
[2017-10-30 08:54] LABS: ABSOLUTE GRANULOCYTE CT 5.5 /CUMM (1.4-6.5); ABSOLUTE LYMPH COUNT 1.9 /CUMM (1.2-3.4); BASOPHIL % 0.5 % (0.0-2.0); EOSINOPHIL % 0.8 % (0-5); MEAN CORPUSCULAR HGB 32.1 PG (27.0-31.0); MEAN CORPUSCULAR HGB CONC 33.6 G/DL (33.0-37.0); MEAN CORPUSCULAR VOLUME 95.7 FL (80.0-94.0); PLATELET COUNT 77 /CUMM (130-400); RBC DISTRIBUTION WIDTH 13.6 % (11.5-14.5); RED BLOOD CELL CT 4.93 /CUMM (4.70-6.10)
[2017-10-30 08:59] LABS: HEMATOCRIT 47.1 % (42-52)
--- NOTE | 2017-10-30 09:28 | PN- Housestaff ---
Steve Lugo 10/30/17 0927: Subjective Follow-up For: Suspected TIA Transaminitis Thrombocytopenia Fever Subjective: Reason was seen and examined this morning. He is alert awake and oriented to time place and person. No acute events noticed overnight. surveillance monitor was uneventful. Patient denies any numbness, tingling, weakness, sensory changes. No changes in his gait. No headache, no focal neurologic deficits. He was seen by Dr. Arredondo neurologist. MRI head and echocardiogram are pending. Overnight he spiked temperature 100.8. However WBC count remained stable. He continued to have low platelet count. Vitals remained stable this morning afebrile, heart rate 80, respiratory rate 14 , blood pressure 114/68, saturating at 95 on room air Review of Systems Constitutional: Reports: see HPI. Objective Last 24 Hrs of Vital Signs/I&O Vital Signs Date Time Temp Pulse Resp B/P B/P Pulse O2 O2 Flow FiO2 Mean Ox Delivery Rate 10/30 1008 80 114/68 10/30 0646 98.6 80 18 114/68 95 Room Air 10/29 2308 98.6 82 16 102/60 92 Room Air 10/29 1830 86 118/96 10/29 1830 98.6 86 18 118/62 97 Room Air 10/29 1734 100.8 96 20 124/67 96 Room Air 10/29 1652 100.8 10/29 1641 100.8 102 20 117/63 94 Room Air 10/29 1614 100.9 10/29 1605 101.1 97 22 124/69 95 Room Air 10/29 1512 98 25 121/60 95 Room Air 10/29 1425 100.9 103 20 134/67 94 Room Air 10/29 1323 Room Air 10/29 1322 108 19 136/78 97 Room Air 10/29 1252 99.5 103 18 158/74 99 Room Air Intake & Output 10/30 1600 10/30 0800 10/30 0000 Intake Total 900 180 Output Total Balance 900 180 Intake, IV 800 150 Intake, Oral 100 30 Patient 79.379 kg Weight Weight Reported by Patient Measurement Method Physical Exam General Appearance: Alert, Oriented X3, Cooperative, No Acute Distress HEENT: Atraumatic Neck: Supple, No JVD Cardiovascular: Normal S1, Normal S2 Lungs: Normal Air Movement Current Medications: Current Medications Sig/Trey Start time Last Medication Dose Route Stop Time Status Admin Acetaminophen 0 .STK-MED ONE 10/29 1616 DC IV Acetaminophen 1,000 MG ONCE ONE 10/29 1615 DC 10/29 N/A 1 UNIT IV 10/29 1629 1614 Aspirin Buffered 81 MG DAILY 10/29 1707 AC 10/30 PO 1009 Atorvastatin Calcium 10 MG DAILY 10/29 1707 AC 10/30 PO 1009 Cholecalciferol 2,000 IU DAILY 10/30 1000 AC 10/30 PO 1008 Enoxaparin Sodium 40 MG DAILY 10/30 1000 AC 10/30 SC 1010 Ferrous Sulfate 325 MG DAILY 10/30 1000 AC 10/30 PO 1009 Hydrochlorothiazide 25 MG DAILY 10/30 1000 CAN PO Lisinopril 20 MG DAILY 10/30 1000 AC 10/30 PO 1008 Magnesium Sulfate 1 GM Q2H 10/30 1100 AC Dextrose/Water 100 ML IV 10/30 1459 Metoclopramide HCl 0 .STK-MED ONE 10/29 1434 DC .ROUTE Metoclopramide HCl 10 MG ONCE ONE 10/29 1415 DC 10/29 IV 10/29 1416 1438 Metronidazole 500 MG BID 10/29 2200 AC 10/30 PO 1009 Multivitamins 1 TAB DAILY 10/30 1000 AC 10/30 Therapeutic PO 1009 Omeprazole 20 MG DAILY 10/30 1000 AC 10/30 PO 1008 Ondansetron HCl 4 MG ONCE ONE 10/29 1345 DC 10/29 IV 10/29 1346 1342 Ondansetron HCl 0 .STK-MED ONE 10/29 1328 DC .ROUTE Oxybutynin Chloride 5 MG QPM 10/29 2200 AC 10/29 PO 2043 Sodium Chloride 1,000 ML Q10H 10/29 1745 AC 10/30 IV 10/30 1344 0900 Sodium Chloride 1,000 ML BOLUS ONE 10/29 1430 DC 10/29 IV 10/29 1629 1439 Last 24 Hrs of Lab/Carlos Results Last 24 Hrs of Labs/Mics: Laboratory Tests 10/30/17 0620: Anion Gap 7, Estimated GFR > 60, BUN/Creatinine Ratio 17.3, Magnesium 1.4 L, Total Bilirubin 0.9, Direct Bilirubin 0.3, AST 94 H, ALT 150 H, Alkaline Phosphatase 46, Total Protein 5.0 L, Albumin 3.0 L, CBC w Diff NO MAN DIFF REQ , RBC 4.93, MCV 95.7 H, MCH 32.1 H, RDW 13.6, MPV 9.4, Gran % 69.0, Lymphocytes % 23.1, Monocytes % 7.7, Eosinophils % 0.8, Basophils % 0.5, Absolute Granulocytes 5.5, Absolute Lymphocytes 1.9, Absolute Monocytes 0.6, Absolute Eosinophils 0.1, Absolute Basophils 0, PUBS MCHC 33.6 10/29/17 210: Troponin I 0.01 10/29/17 210: Lactic Acid 1.8, PT 12.1, INR 1.15, APTT 30 10/29/17 1759: Lactic Acid 1.6 10/29/17 1422: Urine Color YEL, Urine Clarity CLEAR, Urine pH 6.0, Ur Specific [place] 1.015, Urine Protein TRACE H, Urine Ketones NEG, Urine Nitrite NEG, Urine Bilirubin NEG, Urine Urobilinogen 0.2, Ur Leukocyte Esterase NEG, Ur Microscopic SEDIMENT EXAMINED, Urine RBC RARE, Urine WBC RARE, Urine Mucus FEW, Urine Hemoglobin NEG, Urine Glucose NEG 10/29/17 1341: Anion Gap 13, Estimated GFR > 60, BUN/Creatinine Ratio 21.1, Glucose 102 H, Lactic Acid 2.2 H, Calcium 9.6, Total Bilirubin 1.1, AST 371 H, ALT 275 H, Alkaline Phosphatase 77, Troponin I < 0.01, Total Protein 6.5, Albumin 3.9, Globulin 2.6, Albumin/Globulin Ratio 1.5, Amylase 92, Lipase 116, Vitamin B12 > 1000 H, TSH &T3 &Free T4 Intrp 1.980, CBC w Diff NO MAN DIFF REQ, RBC 5.65, MCV 95.2 H, MCH 31.9 H, RDW 13.6, MPV 9.1, Gran % 81.2 H, Lymphocytes % 15.8 L, Monocytes % 2.2, Eosinophils % 0.5, Basophils % 0.3, Absolute Granulocytes 5.3, Absolute Lymphocytes 1.0 L, Absolute Monocytes 0.1, Absolute Eosinophils 0, Absolute Basophils 0, PUBS MCHC 33.5 Microbiology 10/29 2256 BLOOD: Blood Culture - RECD 10/29 2140 BLOOD: Blood Culture - RECD 10/29 1420 NASOPHARYN: Influenza Virus A & B Rapid Smear - COMP Assessment/Plan Assessment: The patient is a 86-year-old gentleman with past medical history 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 difficile colitis for which the patient takes prophylactic metronidazole twice a day. The patient presented to [facility] ED on 10/29 with complain of shaking all over body and left arm numbness. - Vitals at time of presentation temperature 99.5 recheck at 101.1, tachycardia 103. Rest within normal limits -Pertinent labs H/H 18/54, 86, AST 371 ALT 275, lactic 2.2 -The patient is being placed as an observation on telemetry floor. He is being evaluated and treated for following conditions #Suspected TIA Patient had an episode of left-sided numbness and weakness, which has completely resolved by now. His presentation is concerning for a TIA, CT head negative. * Continuous telemetry monitoring for any arrhythmias * Echocardiogram to assess any structural pathology- pending * MRI to rule out evolving stroke- pending * orthostatics- normal * Neuro checks every 4 * continue Aspirin and statin * Patient passed bedside swallow, STARTED on reg diet. #Fever/Vomiting Patient presented to ED with tachycardia and later was found to have fever Tmax 101.1. Lactic acid levels were noted to be 2.2. His presentation is concerning for infectious pathology. * Monitor fever and white count curve * LA trended down after gentle IV hydration * Chest x-ray ruled out any acute pathology/pneumonia. * CAT scan abdomen -There is no abnormal wall thickening or pneumatosis of the small bowel or colon. No free air or fluid in the abdomen or pelvis. No abnormal mesenteric stranding. * Blood cultures no growth so far #Transaminitis Patient presented with transaminitis which can be secondary to an infectious process going on * Monitor LFTs- trending down * If Persistently elevated consider right upper quadrant ultrasound #Thrombocytopenia Patient is admitted with platelets 86. Of unclear etiology for now. looks like viral. * Thrombocytopenic precautions * Monitor platelet count * coagulation profile - wnl #Diet heart healthy diet #DVT prophylaxis alps and Lovenox #CODE STATUS full code Problem List: 1. TIA (transient ischemic attack) 2. Vomiting Pain Ratin Pain Location: n/a Pain Goal: Remain pain free Pain Plan: tylniol Tomorrow's Labs & Rationales: cbc lft Jany Gutierrez MD 10/30/17 1119: Attending MD Review Statement Attending Statement Attending MD Statement: examined this patient, discuss w/resident/PA/SLAG EXPANDER, agreed w/resident/PA/SLAG EXPANDER, reviewed EMR data (avail), discussed with nursing, reviewed images Attending Assessment/Plan: Pt is feeling much better today. No more vomiting. No chills and no weakness. He is an 86-year-old male has a history of hypertension, hyperlipidemia, vascular disease and is being actively worked up for a third nerve palsy. He came in with what appear to be a right arm weakness but spiked a temp last evening to 101, had lactic acidosis ,transaminitis and thrombocytopenia. The etiology of all of his symptoms are unclear. The CT of the abdomen was unrevealing. The transaminases are coming down nicely and he hasn't had anymore fever however continues to be thrombocytopenic. My thought is that this is all secondary to a infection questionable ? viral. Appreciate neurology eval. Will watch him for 24 hours to make sure he is not febrile, follow-up on the platelet count and LFTs and if better will discharge him in a.m. with outpatient follow- up.
--- NOTE | 2017-10-30 12:16 | MRI REPORT ---
EXAMINATION: MR BRAIN WITHOUT CONTRAST CLINICAL INFORMATION: Has previous cranial nerve III palsy. TIA. Generalized shaking episodes. COMPARISON: Head CT 10/29/2017. TECHNIQUE: Multiplanar, multisequence imaging of the brain was performed without intravenous contrast. \H\ \N\FINDINGS: There is no acute infarct, hemorrhage, or mass lesion. There is no extra-axial collection. There are mild foci of T2 hyperintensity in the bilateral cerebral white matter, which are nonspecific but likely reflect underlying small vessel disease. There is mild diffuse brain parenchymal volume loss with prominence of the ventricles and sulci. The ventricles are stable in size without evidence of hydrocephalus. A 12 x 5 x 8 mm T2 hyperintense bubbly lesion is present along the dorsal margin of the basiocciput. There are no infiltrative margins or associated expansion. No definite connection to the adjacent subarachnoid space is seen. The flow voids of the major intracranial arteries appear intact. There are advanced degenerative changes at the C3-C4 level without significant spinal canal stenosis. There is mild scattered paranasal sinus mucosal thickening. There are bilateral lens implants. IMPRESSION: 1. No acute infarct, parenchymal mass, hemorrhage, or evidence of hydrocephalus. 2. Mild small vessel ischemic changes in a background of mild diffuse brain parenchymal volume loss. 3. Incidentally noted 12 mm T2 hyperintense lesion within the dorsal basiocciput. 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 Further evaluation with postcontrast images through the skull base is recommended. RECOMMENDATION: Thin section high-resolution postcontrast images through the skull base for further evaluation of the clival abnormality.
--- NOTE | 2017-10-30 13:11 | Patient Discharge Instructions ---
Discharge Instructions General Discharge Information You were seen/treated for: TIA Fever Lactic acidosis Transaminitis Thrombocytopenia You had these procedures: none Special Instructions: Please follow-up with PCP in one week after discharge. Please follow-up with your track helper in 1-2 weeks after discharge. Please follow-up with neurologist in 1 week after discharge to see if repeat MRI is needed PLease follow up CBC results within one week Diet Continue normal diet: Yes Activity Full Activity/No Limits: Yes Activity Self Limited: Yes Acute Coronary Syndrome Inclusion Criteria At DC or during hospital stay patient has or had the following: ACS DIAGNOSIS No Discharge Core Measures Meds if any: Prescribed or Continued at Discharge Meds if any: NOT Prescribed or Continued at Discharge Congestive Heart Failure Inclusion Criteria At DC or during hospital stay patient has or had the following: CHF DIAGNOSIS No Discharge Core Measures Meds if any: Prescribed or Continued at Discharge Meds if any: NOT Prescribed or Continued at Discharge Cerebrovascular accident Inclusion Criteria At DC or during hospital stay patient has or had the following: CVA/TIA Diagnosis Yes Discharge Core Measures Meds if any: Prescribed or Continued at Discharge Meds if any: NOT Prescribed or Continued at Discharge Venous thromboembolism Inclusion Criteria VTE Diagnosis No VTE Type NONE VTE Confirmed by (Test) NONE Discharge Core Measures - Per Current guidelines, there needs to be overlap - treatment for the first 5 days of Warfarin therapy. - If discharged on Warfarin prior to 5 days of - overlap therapy, the patient will need to be - assessed for post discharge needs including - *Post discharge parental anticoagulation - *Warfarin and/or parental anticoagulation education - *Follow up date to check INR post discharge At least 5 days overlap therapy as Inpatient Yes Meds if any: Prescribed or Continued at Discharge Note: Overlap Therapy is Warfarin and Anticoagulant Meds if any: NOT Prescribed or Continued at Discharge
[2017-10-30 14:46] VITALS: BP 118/70
--- NOTE | 2017-10-30 18:23 | ECHOCARDIOGRAM REPORT ---
TIERRA BOGGS Age: 86 : 1930 Gender: M Exam Date: 10/30/2017 10:05 Exam Location: [facility] Ht (in): 66 Wt (lb): 175 BSA: 1.94 BP: 114 / 60 Ordering Physician: Lyn Cintron MD Referring Physician: Paul Colón M.D. Technologist: May Mcdonald RDCS Room Number: 182 Indications: TIA Rhythm: Technical Quality: Good FINDINGS Left Ventricle Normal global left ventricular size, wall thickness, systolic function with no obvious regional wall motion abnormalities. Left ventricular ejection fraction is estimated at > 55 %. Right Ventricle Normal right ventricular size and function. Right Atrium Normal right atrial size. Left Atrium Normal left atrial size. Mitral Valve No mitral stenosis. Mild mitral annular calcification. Mild mitral regurgitation. Aortic Valve Diffuse thickening of the aortic valve cusps with reduced excursion. Mild aortic stenosis. Tricuspid Valve Structurally normal tricuspid valve. Mild tricuspid regurgitation. No evidence of pulmonary hypertension. Pulmonic Valve Pulmonic valve not well visualized, grossly normal. Pericardium No pericardial effusion. Great Vessels Normal size aortic root. CONCLUSIONS Normal global left ventricular size, wall thickness, systolic function with no obvious regional wall motion abnormalities. Left ventricular ejection fraction is estimated at > 55 %. Normal right ventricular size and function. Mild aortic stenosis. No evidence of pulmonary hypertension. No pericardial effusion. Paul Colón M.D. (Electronically Signed) Final Date: 30 October 2017 18:23 MEASUREMENTS (Male / Female) Normal Values 2D ECHO LV Diastolic Diameter PLAX 3.9 cm 4.2 - 5.9 / 3.9 - 5.3 cm LV Systolic Diameter PLAX 2.4 cm 2.1 - 4.0 cm LV Fractional Shortening PLAX 38.5 % 25 - 46 % LV Ejection Fraction 2D Teich 69.4 % IVS Diastolic Thickness 1.0 cm LVPW Diastolic Thickness 1.1 cm LV Relative Wall Thickness 0.5 RV Internal Dim ED PLAX 2.8 cm 1.9 - 3.8 cm LVOT Diameter 2.2 cm Aortic Root Diameter 3.0 cm LA Systolic Diameter LX 3.5 cm 3.0 - 4.0 / 2.7 - 3.8 cm LA Volume 39.0 cm 18 - 58 / 22 - 52 cm Ascending Aorta Diameter 3.1 cm DOPPLER AV Peak Velocity 242.0 cm/s AV Peak Gradient 23.4 mmHg AV Mean Velocity 171.0 cm/s AV Mean Gradient 13.0 mmHg AV Velocity Time Integral 50.2 cm LVOT Peak Velocity 101.0 cm/s LVOT Peak Gradient 4.1 mmHg LVOT Mean Velocity 66.4 cm/s LVOT Mean Gradient 2.0 mmHg LVOT Velocity Time Integral 21.0 cm LVOT Stroke Volume 79.8 cm AV Area Cont Eq vti 1.6 cm AV Area Cont Eq pk 1.6 cm MV Peak Velocity 127.0 cm/s MV Peak Gradient 6.5 mmHg MV Mean Velocity 73.0 cm/s MV Mean Gradient 3.0 mmHg Mitral E Point Velocity 88.4 cm/s Mitral A Point Velocity 118.0 cm/s Mitral E to A Ratio 0.7 MV PHT Velocity 103.0 cm/s MV Deceleration Tate 381.0 cm/s MV Pressure Half Time 81.1 ms MV Area PHT 2.7 cm MV Deceleration Time 111.0 ms TR Peak Velocity 251.0 cm/s TR Peak Gradient 25.2 mmHg Right Atrial Pressure 5.0 mmHg Pulmonary Artery Systolic Pressu 30.2 mmHg Right Ventricular Systolic Press 30.2 mmHg PV Peak Velocity 111.0 cm/s PV Peak Gradient 4.9 mmHg PV Mean Velocity 76.2 cm/s PV Mean Gradient 3.0 mmHg PV Velocity Time Integral 20.1 cm LV E' Lateral Velocity 8.8 cm/s Mitral E to LV E' Lateral Ratio 10.1 LV E' Septal Velocity 7.2 cm/s Mitral E to LV E' Septal Ratio 12.3
[2017-10-30 23:02] VITALS: BP 124/68
[2017-10-31 07:15] VITALS: BP 157/88
[2017-10-31 08:10] VITALS: BP 157/88
[2017-10-31 08:16] LABS: ABSOLUTE BASOPHIL COUNT 0 /CUMM (0.0-0.2); ABSOLUTE EOSINOPHIL COUNT 0.2 /CUMM (0.0-0.7); ABSOLUTE GRANULOCYTE CT 3.2 /CUMM (1.4-6.5); ABSOLUTE LYMPH COUNT 1.8 /CUMM (1.2-3.4); ABSOLUTE MONOCYTE COUNT 0.5 /CUMM (0.10-0.60); BASOPHIL % 0.5 % (0.0-2.0); EOSINOPHIL % 3.5 % (0-5); GRANULOCYTE % 55.7 % (42.2-75.2); HEMATOCRIT 47.4 % (42-52); MEAN CORPUSCULAR HGB 31.7 PG (27.0-31.0); MEAN CORPUSCULAR HGB CONC 33.5 G/DL (33.0-37.0); MEAN CORPUSCULAR VOLUME 94.7 FL (80.0-94.0); MEAN PLATELET VOLUME 9.3 FL (7.4-10.4); PLATELET COUNT 77 /CUMM (130-400); RBC DISTRIBUTION WIDTH 13.8 % (11.5-14.5); RED BLOOD CELL CT 5.01 /CUMM (4.70-6.10); WHITE BLOOD CELL COUNT 5.7 /CUMM (4.8-10.8)
--- NOTE | 2017-10-31 09:19 | PN- Housestaff ---
Kristi Perez 10/31/17 0918: Subjective Follow-up For: Suspected TIA Transaminitis Thrombocytopenia Fever Complaints: no complaints Tele-Events Since Last Visit: non tele event Subjective: He is alert awake and oriented to time place and person. Patient denies any numbness, tingling, weakness, sensory changes. No changes in his gait. No headache, no focal neurologic deficits. air Review of Systems Constitutional: Reports: no symptoms. Cardiovascular: Reports: no symptoms. Respiratory: Reports: no symptoms. Gastrointestinal: Reports: no symptoms. Objective Last 24 Hrs of Vital Signs/I&O Vital Signs Date Time Temp Pulse Resp B/P B/P Pulse O2 O2 Flow FiO2 Mean Ox Delivery Rate 10/31 0810 61 157/88 10/31 0715 97.9 61 20 157/88 96 10/30 2302 98.9 77 16 124/68 96 Room Air Intake & Output 10/31 1600 10/31 0800 10/31 0000 Intake Total 200 420 Output Total Balance 200 420 Intake, IV 300 Intake, Oral 200 120 Number 1 Bowel Movements Physical Exam General Appearance: Alert, Oriented X3, Cooperative, No Acute Distress Neck: No JVD Lymphatic: Axillary nl, Cervical nl Cardiovascular: Normal S1, Normal S2, No Murmurs Extremities: No Cyanosis, No Edema Assessment/Plan Assessment: The patient is a 86-year-old gentleman with past medical history 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 difficile colitis for which the patient takes prophylactic metronidazole twice a day. active problems #Suspected TIA Patient had an episode of left-sided numbness and weakness, which has completely resolved by now. His presentation is concerning for a TIA, CT head negative. * Continuous telemetry monitoring for any arrhythmias * Echocardiogram to assess any structural pathology- pending * MRI to rule out evolving stroke- pending * orthostatics- normal * Neuro checks every 4 * continue Aspirin and statin * Patient passed bedside swallow, STARTED on reg diet. #Fever/Vomiting- imprved; work up was negative possible viral causes #Transaminitis- improved #Thrombocytopenia- improved Problem List: 1. TIA (transient ischemic attack) 2. Vomiting Pain Ratin Pain Location: back Pain Goal: Remain pain free Pain Plan: pain pathway Tomorrow's Labs & Rationales: none Discharge Plan Anticipated Discharge (Day): today
--- NOTE | 2017-10-31 09:34 | PN- Att Addend ---
Attending Addendum Attending Brief Note Pt seen and examined. He feels completely well and is eager to go home. Overnight he hasn't had any fever. Blood pressure is 130/70, pulse is 76, breathing at 16-18 and afebrile. Awake, alert and oriented, lungs are clear to auscultation, heart is S1-S2 regular, abdomen is soft nontender and there is no hepatosplenomegaly. No neurological deficits. Transaminitis is almost completely resolved but platelet count remains in the 77 ,000 and MRI results noted. Patient is stable to leave. This was all likely a viral infection with transaminitis lactic acidosis and thrombocytopenia. Given the thrombocytopenia I have given him a slip to check his CBC in a week and report results to his primary care physician Dr. Eric Tiwari. I've also given him a referral to Dr. Arredondo the neurologist given the incidental MRI findings and to see whether a repeat MRI is indicated. I explained to patient all of the above.
--- NOTE | 2017-10-31 15:20 | Discharge Summary ---
Visit Information Visit Dates Admission Date: 10/29/17 Discharge Date: 10/31/17 Hospital Course Course Attending Physician: Brenda DANIELS,Jany Bustillos Primary Care Physician: Te DANIELS,Rodolfo Reyes Consulting Request: Consulting Specialty: Neurology Hospital Course: 86-year-old male past medical history of hypertension, vascular disease and hyperlipidemia, third nerve palsy being worked up to [place] who was brought in for right upper extremity weakness transient and resolved by the time he came to the ER. Later in the ER he spiked a temperature, had rigors and vomited 4. Was noted to have thrombocytopenia and transaminitis with lactic acidosis. Vital infection likely. We cultured him, hydrated him and trended the lactate and liver enzymes. The lactic acidosis resolved nicely and the transaminitis resolved too but the platelet count continued to be low at 70-80,000. Coags were normal and the smear didn't reveal any abnormalities. For his upper extremity weakness he was seen by neurology and had an MRI of his head. The MRI - IMPRESSION: 1. No acute infarct, parenchymal mass, hemorrhage, or evidence of hydrocephalus. 2. Mild small vessel ischemic changes in a background of mild diffuse brain parenchymal volume loss. 3. Incidentally noted 12 mm T2 hyperintense lesion within the dorsal basiocciput. 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 Further evaluation with postcontrast images through the skull base is recommended. RECOMMENDATION: Thin section high-resolution postcontrast images through the skull base for further evaluation of the clival abnormality. Patient did well, no arrhythmias on telemetry and was stable to be discharged. I gave him a slip to check his CBC to follow-up on his platelet count in a week i.e. 11/07 and to report the results to his PCP. In addition I also gave him a referral to the neurologist to see whether a repeat MRI is indicated. Allergies: Coded Allergies: No Known Allergies (10/29/17) Disposition Summary Disposition Principal Diagnosis: Likely viral infection - fever, lactic acidosis and transaminitis with thrombocytopenia. Additional Diagnosis: Hypertension and hyperlipidemia Discharge Disposition: home or self care Discharge Instructions General Discharge Information Code Status: Full Code Patient's Diet: Heart healthy Patient's Activity: Ad corina. Follow-Up Instructions/Appts: 1. Please check CBC on 11/07/2017. Patient was given a slip for this and please report results to patient's PCP Dr. Tiwari to follow-up on thrombocytopenia. 2. Please follow-up with Dr. Arredondo the neurologist regarding necessity to repeat MRI. Medications at Discharge Discharge Medications: Continue taking these medications: Metronidazole (Metronidazole) 500 MG TABLET 1 Tablet ORAL TWICE DAILY Qty = 180 Comments: Last Taken: 10/31/17 Time: 0809 Omeprazole (Omeprazole) 20 MG CAPSULE.DR 1 Capsule ORAL DAILY Comments: Last Taken: 10/31/17 Time: 0809 Hydrochlorothiazide (Hydrochlorothiazide) 25 MG TABLET 1 Tablet ORAL DAILY Qty = 90 Comments: NOT GIVEN IN HOSPITAL Lisinopril (Lisinopril) 20 MG TABLET 1 Tablet ORAL DAILY Qty = 90 Comments: Last Taken: 10/31/17 Time: 0810 Atorvastatin Calcium (Atorvastatin Calcium) 10 MG TABLET 1 Tablet ORAL DAILY Qty = 90 Comments: Last Taken: 10/31/17 Time: 0809 Oxybutynin Chloride (Oxybutynin Chloride ER) 5 MG TAB.ER.24 1 Tablet ORAL Every night Qty = 90 Comments: Last Taken: 10/30/17 Time: 2103 Cholecalciferol (Vitamin D3) (Vitamin D) 2,000 UNIT CAPSULE 1 Capsule ORAL TWICE DAILY Comments: Last Taken: 10/31/17 Time: 0809 Aspirin (Ecotrin*) 81 MG TABLET.DR 1 Tablet ORAL DAILY Comments: Last Taken: 10/31/17 Time: 0809 Cyanocobalamin (Vitamin B-12) (Cyanocobalamin Injection) 1,000 MCG/ML VIAL 1 Milliliters INTRAMUSC ONCE A MONTH Comments: NOT GIVEN IN HOSPITAL Lactobacillus Acidophilus (Probiotic) (Unknown Strength) CAPSULE Unknown Dose ORAL DAILY Comments: NOT GIVEN IN HOSPITAL Ferrous Sulfate (Slow Fe) 142 MG (45 MG IRON) TABLET.ER 1 Tablet ORAL DAILY Comments: Last Taken: 10/31/17 Time: 0809 Multiple Vitamin (Multivitamins) 1 EACH TABLET 1 Tablet ORAL DAILY Comments: Last Taken: 10/31/17 Time: 0809 Glucosamine HCl/MSM (Glucosamine MSM Liquid) (Unknown Strength) LIQUID Unknown Dose ORAL DAILY Comments: NOT GIVEN IN HOSPITAL Copies To: Te DANIELS,Rodolfo Reyes; Arnulfo DANIELS,Marixa Walker
== END 2017-10-31 13:05 | DRG 866 ==
LOC: ERH 12:45 → ERHI 16:21 → 1NO 16:21 → ENRESERV 17:13 → ENTRNSPT 17:35 → EDTRNSPTSTS 18:06 → EDTRNSPT 18:11 → 1NO 18:15 → CMPTRNSPT 18:40 → 1NO 20:15 → ENPENDDIS 10-31 09:22 → ENTRNSPT 10-31 13:01 → 1NO 10-31 13:05 → EDTRNSPTSTS 10-31 13:19 → EDTRNSPT 10-31 13:19 → CMPTRNSPT 10-31 13:29
PROVIDERS: Hospitalist; Physician Assistant; Student in an Organized Health Care Education/Training Program
DX: B34.9 Viral infection, unspecified (principal); E87.2 Acidosis; H49.00 Third [oculomotor] nerve palsy, unspecified eye; D69.6 Thrombocytopenia, unspecified; B02.21 Postherpetic geniculate ganglionitis; E78.5 Hyperlipidemia, unspecified; I10 Essential (primary) hypertension; R74.0 Nonspecific elevation of levels of transaminase and lactic acid dehydrogenase [LDH]; K21.9 Gastro-esophageal reflux disease without esophagitis; I99.9 Unspecified disorder of circulatory system; R11.10 Vomiting, unspecified; Z87.891 Personal history of nicotine dependence
CPT/HCPCS: 1NP; 6020; 70551; 36415; 74177; 81001; 82436; 87040; 87804; 87804-59; 93005; 93010; 93306; 96361; 96374; 96375; G0378; J0131; J1650; J2405; J2765